=== PATIENT | female | born 1960 | race Caucasian/White ===

== ENCOUNTER 2018-11-21 11:43 | Emergency (ER) | payer BC ==
[~2018-11-21] VITALS: Ht 172.7 cm; Wt 90.7 kg
[~2018-11-21 11:43] MED LIST: AMLO5; Advil200 M1; CHOLESTEROL PILL; CIPR500 PO; CYCL10 PO; Cabergoline0.5 MG; EZET10 PO; HYDACE5 PO; HYDCHL12.5 PO; Hydrocodone-Ap1 EA23; IBUP400 PO; LEVSOD50 PO; LISHYD1012; LISI20 PO; METR500 PO; OMEP10ER PO; PROM25 PO; PROZAC20 MG; Percocet 5-3251 EACH PO; SIMV40 PO; Transderm-Scop1 EACH; VENL75ER; VITAMIN D-32000 UNIT
[2018-11-21 12:57] LABS: BASOPHILS ABSOLUTE AUTO 0.04 K/mm3 (0.00-0.23); BASOPHILS PERCENT AUTO 1 % (0-2); EOSINOPHILS ABSOLUTE AUTO 0.11 K/mm3 (0.00-0.68); EOSINOPHILS PERCENT AUTO 2 % (0-6); Hematocrit 39.5 % (33.0-51.0); Hemoglobin 13.6 g/dL (11.5-16.0); IMMATURE GRAN ABSOLUTE AUTO 0.01 K/mm3 (0.00-0.10); IMMATURE GRAN PERCENT AUTO 0 % (0-1); LYMPHOCYTES ABSOLUTE AUTO 1.89 K/mm3 (0.84-5.20); LYMPHOCYTES PERCENT AUTO 26 % (21-46); MONOCYTES ABSOLUTE AUTO 0.68 K/mm3 (0.16-1.47); MONOCYTES PERCENT AUTO 10 % (4-13); Mean Corpuscular HGB 31.6 pg (26.0-34.0); Mean Corpuscular HGB Conc 34.4 g/dL (31.5-36.5); Mean Corpuscular Volume 92 fL (80-100); Mean Platelet Volume 9.7 fL (9.1-12.4); NEUTROPHILS ABSOLUTE AUTO 4.44 K/mm3 (1.96-9.15); NEUTROPHILS PERCENT AUTO 62 % (41-73); Platelet Count 379 K/mm3 (150-400); RDW Coefficient Variation 11.3 % (11.7-14.2); RDW Standard Deviation 38.3 fL (35.1-46.3); White Blood Cell Count 7.17 K/mm3 (4.00-11.30)
[2018-11-21 13:25] LABS: Alanine Aminotransfer (ALT/SGP 62 U/L (12-78); Albumin, Blood 4.6 g/dL (3.4-5.0); Albumin/Globulin Ratio 1.3 (0.8-1.8); Alk Phos 58 U/L (50-136); Anion Gap 11 mmol/L (6-16); Aspartate Aminotrans (AST/SGOT 38 U/L (12-37); Bilirubin, Total 0.5 mg/dL (0.1-1.0); Blood Urea Nitrogen 17 mg/dL (8-24); Bun/Creatinine Ratio 19.8 (12.0-20.0); CO2, Blood 27 mmol/L (21-32); Calcium, Blood 10.3 mg/dL (8.5-10.1); Chloride, Blood 98 mmol/L (98-108); Creatinine, Blood 0.86 mg/dL (0.40-1.00); Globulin, Blood 3.6 g/dL (2.2-4.0); Glomerular Filtration Rate >60 (60-); Glucose, Blood 112 mg/dL (70-99); Potassium, Blood 3.4 mmol/L (3.5-5.5); Sodium, Blood 136 mmol/L (136-145); Total Protein, Blood 8.2 g/dL (6.4-8.2); Troponin I <0.015 ng/mL (0.000-0.040)
[2018-11-21] MEDS ORDERED: SIMV10 PO (14:10)
[2018-11-21] MEDS ORDERED: Omeprazole20 M1 (14:10)
[2018-11-21] MEDS ORDERED: EZET10 PO (14:11)
[2018-11-21] MEDS ORDERED: Zofran8 MG PO (14:52)
== END 2018-11-21 15:10 | disposition home or self-care (01) ==
LOC: ER 11:43
PROVIDERS: Physician Assistant
DX: R11.2 Nausea with vomiting, unspecified (principal); K21.9 Gastro-esophageal reflux disease without esophagitis; I10 Essential (primary) hypertension; E78.5 Hyperlipidemia, unspecified; Z79.899 Other long term (current) drug therapy
CPT/HCPCS: 36415; 71046; 80053; 84484; 85025; 93005; 93010; 96374; 99284-25; J2405

== ENCOUNTER → 2019-09-27 | Outpatient (CLI) | payer BC ==
[~2019-09-27] MED LIST changes: +Omeprazole20 M1; +SIMV10 PO; +Zofran8 MG PO
== END | disposition home or self-care (01) ==
LOC: LAB SHORT 17:50 → LAB EV 17:50
DX: R07.0 Pain in throat (principal)
CPT/HCPCS: 87081

== ENCOUNTER 2022-07-23 11:29 | Observation (INO) | payer BC ==
[~2022-07-23] VITALS: Ht 172.7 cm; Wt 88.8 kg
[~2022-07-23 11:29] MED LIST changes: -Cefpodoxime Pr100 MG PO; -EUTHYROX50 MCG PO; -VISBIOME 112.51 EACH PO
[2022-07-23 14:18] LABS: Source, Urine Clean Catch
[2022-07-23 14:23] LABS: Appearance, Urine Hazy (Clear); Bilirubin, Urine Neg (Neg); Blood, Urine 2+ (Neg); Color, Urine Yellow (P-Yellow); Glucose Qualitative, Urine Neg (Neg); Ketones, Urine Neg (Neg); Leukocyte Esterase, Urine 1+ (Neg); Nitrite, Urine Neg (Neg); Protein, Urine 1+ (Neg); Urobilinogen, Urine NORM (Normal)
[2022-07-23 14:34] LABS: Bacteria Few /hpf; Squamous Epithelial Cells Many /hpf (Few); Transitional Epithelial Cells Mod /hpf (0-Rare)
[2022-07-23 14:35] LABS: Renal Epithelial Mod /hpf (0-Rare)
[2022-07-23 15:01] LABS: Influenza A, PCR NEGATIVE (NEGATIVE); Influenza B, PCR NEGATIVE (NEGATIVE); Resp Syncytial Virus, PCR NEGATIVE (NEGATIVE); SARS-Cov-2 (COVID-19) PCR, MMC NEGATIVE (NEGATIVE)
--- NOTE | 2022-07-23 17:58 | NUR ---
RECEIVED REPORT FROM ER NURSE DACIA GOEL AROUND 1400. PATIENT ADMITTED TO MEDICAL UNIT WITH DIAGNOSIS OF SEPSIS. PATIENT ARRIVED TO ROOM 334 AROUND 1418 VIA GURNEY. PATIENT TRANSFERRED TO BED INDEPENDENTLY. ORIENT TO ROOM AND CALL SYSTEM. PATIENT A&OX4. PATIENT REPORTS DEAF ON R EAR. PLEASANT AND COOPERATIVE WITH CARE. USES CALL LIGHT APPROPRIATELY AND ABLE TO ADVOCATE FOR HER NEEDS. PATIENT K WAS DRAWN AT THE URGENT CARE WAS 2.6. LAST K RESULT DRAWN AT 1609 WAS 3.2. PATIENT RECEIVED K SCHEDULED DOSE PER EMAR. ADMISSION ASSESSMENT, MEDRIC WAS COMPLETED. PATIENT LUNGS CLEAR T/O TO AUSCULTATION. DENIED SOB. DENIED CP/CHEST DISCOMFORT. DENIED N/V. PATIENT AMBULATES TO BATHROOM INDEPENDENTLY WITH NO ASSISTIVE DEVICE NEEDED. IV TO L AC INFUSING NS. PATIENT ATE 100% OF HER DINNER AND TOLERATED WELL WITHOUT ANY SIGNS OF ABDOMINAL DISCOMFORT. PATIENT REPORTS OF NECK, ARMS AND HAND PAIN. RECEIVED PRN PAIN MEDS PER EMAR. VITAL SIGNS REVIEWED. BED IN LOWEST POSITION, LOCKED AND CALL LIGHT IN REACH.
[2022-07-23 23:54] LABS: Bun/Creatinine Ratio 22.9 (12.0-20.0); Calcium, Blood 8.9 mg/dL (8.5-10.1); Creatinine, Blood 1.05 mg/dL (0.40-1.00); Potassium, Blood 3.6 mmol/L (3.5-5.5)
--- NOTE | 2022-07-24 02:47 | NUR ---
A/Ox4; CALM AND COOPERATIVE. FORGETFUL. SBA TO BSC (AMBULATES WELL, JUST NEEDS ASSIST WITH IV TUBING/POLE). C/O PAIN -SCHEDULED ANALGESIC PER ORDERS. TACHYCARDIA; LOW 100'S. NON-PITTING EDEMA BILATERAL HANDS AND FEET. SLEEP PROMOTED. PATIENT REQUESTED SLEEP AID; 1X ORDER OBTAINED AND GIVEN. BED ALARM SET. CALL LIGHT IN REACH; ENCOURAGED TO MAKE NEEDS KNOWN.
[2022-07-24 05:12] LABS: Hemoglobin 10.4 g/dL (11.5-16.0); Mean Corpuscular HGB 30.7 pg (26.0-34.0); Mean Corpuscular HGB Conc 33.5 g/dL (31.5-36.5); Mean Corpuscular Volume 91 fL (80-100); Mean Platelet Volume 10.5 fL (9.1-12.4); Platelet Count 157 K/mm3 (150-400); RDW Coefficient Variation 12.8 % (11.7-14.2); RDW Standard Deviation 42.6 fL (35.1-46.3); Red Blood Cell Count 3.39 M/mm3 (3.80-5.20); White Blood Cell Count 16.27 K/mm3 (4.00-11.30)
[2022-07-24 05:44] LABS: BAND PERCENT MAN 9 % (0-8); BASOPHILS PERCENT MAN 0 % (0-2); EOSINOPHILS PERCENT MAN 8 % (0-6); LYMPHOCYTES % ATYPICAL MANUAL 1 % (0-0); LYMPHOCYTES ABSOLUTE MAN 1.62 K/mm3 (0.84-5.20); LYMPHOCYTES PERCENT MAN 9 % (21-46); METAMYELOCYTE ABSOLUTE MAN 0.16 K/mm3 (0.00-0.00); METAMYELOCYTE PERCENT MAN 1 % (0-0); MONOCYTES ABSOLUTE MAN 0.32 K/mm3 (0.16-1.47); MONOCYTES PERCENT MAN 2 % (4-13); MYELOCYTE ABSOLUTE MAN 0.16 K/mm3 (0.00-0.00); MYELOCYTE PERCENT MAN 1 % (0-0); NEUTROPHILS ABSOLUTE MAN 12.69 K/mm3 (1.96-9.15); SEG NEUTROPHILS PERCENT MAN 69 % (41-73); TOTAL CELLS COUNTED 100
[2022-07-24 05:51] LABS: Bun/Creatinine Ratio 16.9 (12.0-20.0); Creatinine, Blood 0.95 mg/dL (0.40-1.00); Potassium, Blood 3.4 mmol/L (3.5-5.5)
[2022-07-24] MEDS ORDERED: EUTHYROX50 MCG PO (16:35)
[2022-07-24] MEDS ORDERED: VISBIOME 112.51 EACH PO (16:37)
[2022-07-24] MEDS ORDERED: Cefpodoxime Pr100 MG PO (16:39)
--- NOTE | 2022-07-24 17:23 | NUR ---
SHIFT/DISCHARGE SUMMARY: PATIENT A&OX4. PLEASANT AND COOPERATIVE WITH CARE. USES CALL LIGHT APPROPRIATELY AND ABLE TO ADVOCATE FOR HER NEEDS. PATIENT DENIED CP/CHEST DISCOMFORT. DENIED N/V/D. DENIED SOB. PATIENT RECEIVED ALL SCHEDULED MEDS THIS SHIFT. VITAL SIGNS REVIEWED. IV DC'D TO L AC AND R AC. PATIENT DISCHARGE HOME. DISCHARGE INSTRUCTIONS PACKET GIVEN TO PATIENT. EDUCATE PATIENT REGARDING DIAGNOSIS, SIGNS AND SYMPTOMS, TREATMENT AND NEW PRESCRIBED MEDICATIONS. PATIENT STATED UNDERSTANDING AND NO FURTHER QUESTIONS. RX WAS FAXED TO PATIENT PREFERRED PHARMACY ([facility]). ALL PATIENT PERSONAL BELONGINGS WERE SENT HOME WITH THE PATIENT. PATIENT WAS TRANSPORTED VIA WHEELCHAIR BY THIS RN TO PATIENT'S SPOUSE PRIVATE VEHICLE.
== END 2022-07-24 17:07 | disposition home or self-care (01) ==
LOC: ER 11:29 → MEDS 11:31 → ER 13:18 → MEDS 13:18
PROVIDERS: Family Medicine; Student in an Organized Health Care Education/Training Program; ADMIT Family Medicine
DX: A41.9 Sepsis, unspecified organism (principal); N39.0 Urinary tract infection, site not specified; N17.9 Acute kidney failure, unspecified; E87.6 Hypokalemia; I10 Essential (primary) hypertension; E78.5 Hyperlipidemia, unspecified; K21.9 Gastro-esophageal reflux disease without esophagitis; E03.9 Hypothyroidism, unspecified; G89.29 Other chronic pain; M54.50 Low back pain, unspecified; F32.A Depression, unspecified; Z20.822 Contact with and (suspected) exposure to COVID-19; Z88.0 Allergy status to penicillin; Z23 Encounter for immunization
CPT/HCPCS: 0241U; 36415; 80048; 81001; 83605; 83735; 84132; 85025; 87086; 90686; 96361; 96372; A9270; G0378; J0696; J1650; J3475; J3480; J7030; J7050; J7120

== ENCOUNTER → 2022-07-23 | Outpatient (CLI) | payer BC ==
[~2022-07-23] MED LIST changes: +Cefpodoxime Pr100 MG PO; +EUTHYROX50 MCG PO; +VISBIOME 112.51 EACH PO
[2022-07-23 10:45] LABS: Hematocrit 33.5 % (33.0-51.0); Hemoglobin 11.8 g/dL (11.5-16.0); Mean Corpuscular HGB 31.2 pg (26.0-34.0); Mean Corpuscular HGB Conc 35.2 g/dL (31.5-36.5); Mean Corpuscular Volume 89 fL (80-100); Mean Platelet Volume 10.2 fL (9.1-12.4); Platelet Count 154 K/mm3 (150-400); RDW Coefficient Variation 11.9 % (11.7-14.2); RDW Standard Deviation 38.6 fL (35.1-46.3); Red Blood Cell Count 3.78 M/mm3 (3.80-5.20); White Blood Cell Count 15.98 K/mm3 (4.00-11.30)
[2022-07-23 10:55] LABS: Albumin, Blood 2.8 g/dL (3.4-5.0); Albumin/Globulin Ratio 0.7 (0.8-1.8); Bilirubin, Total 0.9 mg/dL (0.1-1.0); Bun/Creatinine Ratio 17.9 (12.0-20.0); Calcium, Blood 9.8 mg/dL (8.5-10.1); Creatinine, Blood 1.68 mg/dL (0.40-1.00); Potassium, Blood 2.6 mmol/L (3.5-5.5); Total Protein, Blood 6.8 g/dL (6.4-8.2)
[2022-07-23 11:50] LABS: BAND PERCENT MAN 5 % (0-8); BASOPHILS PERCENT MAN 0 % (0-2); EOSINOPHILS PERCENT MAN 0 % (0-6); LYMPHOCYTES ABSOLUTE MAN 1.11 K/mm3 (0.84-5.20); LYMPHOCYTES PERCENT MAN 7 % (21-46); MONOCYTES ABSOLUTE MAN 0.47 K/mm3 (0.16-1.47); MONOCYTES PERCENT MAN 3 % (4-13); NEUTROPHILS ABSOLUTE MAN 14.38 K/mm3 (1.96-9.15); SEG NEUTROPHILS PERCENT MAN 85 % (41-73); TOTAL CELLS COUNTED 100
== END | disposition home or self-care (01) ==
LOC: LAB 10:39 → LAB SHORT 10:39
PROVIDERS: General Practice
DX: R11.2 Nausea with vomiting, unspecified (principal)
CPT/HCPCS: 80053; 82150; 85025; 87077; 87086; 87186